=== PATIENT | male | born 1945 | race Caucasian/White ===

== ENCOUNTER 2019-05-20 06:54 | Day surgery (SDC) | payer MEDICARE, BC ==
[~2019-05-20 06:54] MED LIST: Acetaminophen TAB* 325 MG PO PRN; Buffered Lidocaine 1% SYRIN* 1 ML/SYRINGE INTRADERM ONE
[2019-05-20] MEDS ORDERED: Midazolam* 1 MG/ML 2 ML VIAL (2 MG) ONE (08:56)
[2019-05-20] MEDS ORDERED: fentaNYL* 50 MCG/ML 2 ML VIAL (100 MCG VIAL) ONE (08:56)
[2019-05-20] MEDS ORDERED: Povidone Iodine 5% OPTH* 30 ML BTL ONE (08:58)
[2019-05-20] MEDS ORDERED: Phenylephrine OPHTH SOL 2.5%* 2 ML ONE (08:58)
[2019-05-20] MEDS ORDERED: Neomycin/Polymy/Dex OPTH.SUSP* MAXITROL 0.1% 5 ML ONE (08:58)
[2019-05-20] MEDS ORDERED: Lidocaine 1% MPF ** 5 ML VIAL ONE (08:58)
[2019-05-20] MEDS ORDERED: acetaZOLAMIDE TAB* 250 MG ONE (08:58)
[2019-05-20] MEDS ORDERED: Proparacaine 0.5% OPHTH.SOL* 15 ML BTL ONE (08:58)
[2019-05-20] MEDS ORDERED: Lidocaine 2% w/ EPI 1:200,000* 20 ML SDV VIAL ONE (08:58)
[2019-05-20] MEDS ORDERED: Cyclopentolate 1% OPTH.SOL* 2 ML BTL ONE (08:58)
[2019-05-20] MEDS ORDERED: Ketorolac 0.5% OPHTH (NF) 0.5 % 5 ML BTL ONE (08:58)
--- NOTE | 2019-05-20 10:07 | OP ---
DATE OF OPERATION: 05/20/2019. DATE OF : 1945. SURGEON: Eric Torres M.D. PREOPERATIVE DIAGNOSIS: Cataract right eye. POSTOPERATIVE DIAGNOSIS: Cataract right eye. OPERATIVE PROCEDURE: Extracapsular cataract extraction with intraocular lens implant right eye. PROCEDURE: The patient was brought to the operating room after being given 1/2% Alcaine with epineph rine drops in the preoperative area. The eye was prepped and draped in the usual sterile fashion. S terile drape and eyelid speculum were placed. Again, topical 1/2% Alcaine with epinephrine was given . A paracentesis incision was made at the 9 o'clock position with the No.75 blade. Clear cornea inc ision 2.2 x 2.2-mm was created at the 12 o'clock position starting at the anterior limbus using the 2 .2-mm keratome. The anterior chamber was irrigated with 0.4 mL of 1% non-preservative intracameral l idocaine and filled with DisCoVisc. A capsulorrhexis was completed using the cystotome and the Utrat a forceps. Hydrodissection was performed with balanced salt solution. The lens nucleus was removed w ith the Phacoemulsification handpiece without incident. Cortex was removed with the irrigation-aspir ation handpiece. The capsular bag was re-inflated using DisCoVisc and an [id number] implant was inser dami with the shooter, oriented to the 171 degree meridian. Horizontal reference crow were made with the patient in a seated position in the preoperative area. All measurements are confirmed with ORA. The irrigation-aspiration handpiece was used to remove all residual DisCoVisc. The eye was refille d with balanced salt solution and the wound checked and found to be watertight. Topical Maxitrol akhil ps were given. [id number]/[facility] #: [id number]
[2019-05-20 10:50] VITALS: BP 103/50
== END 2019-05-20 10:07 | disposition home or self-care (01) ==
LOC: OREAST 06:54
PROVIDERS: ATTEND Specialist
DX: H25.811 Combined forms of age-related cataract, right eye (principal); I10 Essential (primary) hypertension; G47.33 Obstructive sleep apnea (adult) (pediatric); E78.00 Pure hypercholesterolemia, unspecified
CPT/HCPCS: A9270-GY; J2250; J3010; V2787

== ENCOUNTER 2019-05-27 07:21 | Day surgery (SDC) | payer MEDICARE, BC ==
[~2019-05-27 07:21] MED LIST changes: -Acetaminophen TAB* 325 MG PO PRN; +Buffered Lidocaine 1% SYRIN 1 ml INTRADERM ONE; -Buffered Lidocaine 1% SYRIN* 1 ML/SYRINGE INTRADERM ONE
[2019-05-27] MEDS ORDERED: Midazolam 2 mg/2 ml VIAL 1 mg/ml 2 ml VIAL (2 mg) ONE (09:26)
[2019-05-27] MEDS ORDERED: fentaNYL 100 mcg/2 ml 50 MCG/ML VIAL ONE (09:26)
[2019-05-27 10:32] VITALS: BP 113/49
[2019-05-27] MEDS ORDERED: Cyclopentolate 1% OPTH.SOL 2 ML BTL ONE (14:58)
[2019-05-27] MEDS ORDERED: Lidocaine 2% w/ EPI 1:200,000 MPF 20 ML SDV VIAL ONE (14:58)
[2019-05-27] MEDS ORDERED: Proparacaine 0.5% OPHTH.SOL 15 ML BTL ONE (14:58)
[2019-05-27] MEDS ORDERED: Neomycin/Polymy/Dex OPTH.SUSP MAXITROL 0.1% 5 ML ONE (14:58)
[2019-05-27] MEDS ORDERED: Ketorolac 0.5% OPHTH (NF) 0.5 % 5 ML BTL ONE (14:58)
[2019-05-27] MEDS ORDERED: Lidocaine 1% MPF 5 ML VIAL ONE (14:58)
[2019-05-27] MEDS ORDERED: Phenylephrine 2.5% OPHTH SOL 2 ml BTL ONE (14:58)
[2019-05-27] MEDS ORDERED: Povidone Iodine 5% OPTH 30 ML BTL ONE (14:58)
== END 2019-05-27 10:10 | disposition home or self-care (01) ==
LOC: OREAST 07:21
PROVIDERS: ATTEND Specialist
DX: H25.812 Combined forms of age-related cataract, left eye (principal); I10 Essential (primary) hypertension; G47.30 Sleep apnea, unspecified

== ENCOUNTER 2022-01-15 18:04 | Observation (INO) ==
[2022-01-15 18:54] LABS: ABS Eosinophils 0.1 10^3/ul (0-0.6); ABS Monocytes 0.5 10^3/ul (0-0.8); ABS Neutrophils 3.9 10^3/ul (1.5-7.7); Hematocrit 43 % (42-52); Hemoglobin 14.6 g/dL (14.0-18.0); Mean Corpuscular HGB Conc 34 g/dL (31-36); Mean Corpuscular Hemoglobin 31 pg (27-31); Mean Corpuscular Volume 92 fL (80-94); Mean Platelet Volume 8.3 fL (7.4-10.4); Platelet Count 179 10^3/uL (150-450); Red Blood Count 4.71 10^6 /uL (4.18-5.48); Red Cell Distribution Width 13 % (10-15); White Blood Count 5.4 10^3/uL (3.5-10.8)
[2022-01-15 19:02] LABS: Activated Partial Thrombo Time 30.2 seconds (26.0-38.0); INR 1.03 (0.89-1.11)
[2022-01-15] MEDS ORDERED: Iodixanol (CONTRAST) 320 MG/ML 100 ML SDV IV ONE (19:14)
[2022-01-15] MEDS: Iodixanol (CONTRAST) 320 MG/ML 100 ML SDV IV ONE ×2 (19:15→19:17)
[2022-01-15 19:40] LABS: Albumin 4.7 g/dL (3.2-5.2); Albumin/Globulin Ratio 2.2 (1-3); Calcium 9.5 mg/dL (8.6-10.3); Globulin 2.1 g/dL (2-4); HDL Cholesterol 57.7 mg/dL; Potassium 3.9 mmol/L (3.5-5.0); Total Bilirubin 1.7 mg/dL (0.2-1.0); Total Protein 6.8 g/dL (6.4-8.9); eGFR CKD-EPI 79.4 (>60)
[2022-01-15 20:11] LABS: High Sensitivity Troponin 1 Hr 4 pg/mL (<20)
[2022-01-15 21:38] LABS: Urine Appearance Clear; Urine Color Yellow
[2022-01-15 21:39] LABS: Urine Bilirubin Negative (Negative); Urine Blood Negative (Negative); Urine Glucose Negative (Negative); Urine Ketones Negative (Negative); Urine Nitrite Negative (Negative); Urine Protein Negative (Negative); Urine Specific Gravity 1.015 (1.005-1.030); Urine Urobilinogen 0.2 (Negative) (Negative)
[2022-01-16 11:35] VITALS: BP 116/56
== END 2022-01-16 13:05 | disposition home or self-care (01) ==
LOC: ED 18:04 → EDHOLD 18:04 → MEDTELE 01-16 00:33
PROVIDERS: ADMIT Hospitalist; ATTEND Hospitalist